=== PATIENT | male | born 1990 | race Caucasian/White ===

== ENCOUNTER 2018-07-02 13:38 | Emergency (ER) | payer OTHER ==
[2018-07-02 13:51] VITALS: BP 143/86; TEMP 97.5; O2SAT 100
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
== END 2018-07-02 14:32 | disposition home or self-care (01) ==
LOC: ER 13:38 → EDSTATUS 13:39 → ER 14:32
DX: S80.11XA Contusion of right lower leg, initial encounter (principal); V03.10XA Pedestrian on foot injured in collision with car, pick-up truck or van in traffic accident, initial encounter; Y92.410 Unspecified street and highway as the place of occurrence of the external cause

== ENCOUNTER 2019-04-26 16:19 | Emergency (ER) | payer OTHER ==
[2019-04-26] MEDS ORDERED: LIDOCAINE 1% W/ EPINEPHRINE 20 ML VIAL INJ ONE (16:29)
[2019-04-26] MEDS ORDERED: SULFA/TRIMETH 800/160 (DS) TAB 1 EA TAB PO ONE (16:38)
--- NOTE | 2019-04-26 16:41 | ED.PDOC ---
History of Present Illness - General Chief Complaint: Skin/Abrasion/Tear Time Seen by Provider: 04/26/19 16:38 Source: patient Exam Limitations: no limitations - History of Present Illness Initial Comments: the patient is a 29-year-old male presenting to the emergency room secondary to an area of irritation to his rightmid back. On examination this is an abraded skin tag. It does have mild surrounding erythema. It is not currently bleeding. Difficult to tell if the erythema is from irritation or from the start of infection. Timing/Duration: 24 hours Severity: mild Improving Factors: nothing Worsening Factors: nothing Associated Symptoms: denies symptoms Allergies/Adverse Reactions: Allergies NO KNOWN ALLERGY Allergy (Unverified 07/02/18 13:53) Home Medications: Ambulatory Orders Indomethacin 50 mg PO TID PRN #14 cap 07/02/18 Sulfa/Trimeth 800/160 (Ds) Tab [Bactrim DS Tab] 1 ea PO BID #6 tab 04/26/19 Review of Systems - Review of Systems Constitutional: States: no symptoms reported EENTM: States: no symptoms reported Respiratory: States: no symptoms reported Cardiology: States: no symptoms reported Gastrointestinal/Abdominal: States: no symptoms reported Genitourinary: States: no symptoms reported Musculoskeletal: States: no symptoms reported Skin: States: see HPI Neurological: States: no symptoms reported Endocrine: States: no symptoms reported All other Systems: No Change from Baseline Past Medical History (General) - Patient Medical History Hx Stroke: No Hx Asthma: No Hx of COPD: No Hx Congestive Heart Failure: No Hx Diabetes: No Hx Cancer: No Hx of HIV: No Hx Hepatitis C: No Hx MRSA: No - Vaccination History Hx Tetanus, Diphtheria Vaccination: No Hx Influenza Vaccination: No Hx Pneumococcal Vaccination: No - Social History Hx Tobacco Use: No Hx Alcohol Use: No Hx Substance Use: No Hx Substance Use Treatment: No Hx Depression: No - Female History Patient : No Family Medical History - Family History Mother Living Status: Still Living Hx Family;Other: Kidney DX Physical Exam - Physical Exam General Appearance: Alert, Comfortable, No apparent distress Ears, Nose, Throat: hearing grossly normal Neck: full range of motion Respiratory: no respiratory distress, no accessory muscle use Rectal Exam: deferred Back Exam: normal inspection - with the exception of the skin tag Extremity: normal range of motion, normal capillary refill 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 After risk and benefits were explained the patient did agree to have the skin tag removed. Xylocaine with epinephrine was used 1/2 cc for local anesthetic. The skin tag was excised with a scalpel. Chemical cautery was used for hemostasis. Dressing was applied. The patient Will be written for 3 days of Bactrim in case the surrounding erythema is infection starting in the area. ER warnings were given. shobha escobar [id number] Departure - Departure Clinical Impression: Skin tag Cellulitis Qualifiers: Site of cellulitis: trunk Site of cellulitis of trunk: back Qualified Code(s): L03.312 - Cellulitis of back [any part except buttock] Disposition: Discharge to Home or Self Care Condition: Fair Departure Forms: ED Discharge - Pt. Copy, Patient Portal Self Enrollment Instructions: DI for Abrasion, DI for Wound Infection Diet: regular diet Activity: increase activity as tolerated Prescriptions: Sulfa/Trimeth 800/160 (Ds) Tab [Bactrim DS Tab] 1 ea PO BID #6 tab Home Medications: Ambulatory Orders Indomethacin 50 mg PO TID PRN #14 cap 07/02/18 Sulfa/Trimeth 800/160 (Ds) Tab [Bactrim DS Tab] 1 ea PO BID #6 tab 04/26/19 Additional Instructions: the patient is a 29-year-old male presenting to emergency room secondary to erythema and irritation surrounding an abraded skin tag. Xylocaine with epinephrine was used 1/2 cc for local anesthetic. The skin tag was excised with a scalpel. The patient Will be written for 3 days of Bactrim in case the surrounding erythema is infection starting in the area. ER warnings were given.
[2019-04-26 16:52] VITALS: BP 136/82; TEMP 98.7; O2SAT 98
== END 2019-04-26 16:55 | disposition home or self-care (01) ==
LOC: ER 16:19
DX: L03.312 Cellulitis of back [any part except buttock and flank] (principal); L91.8 Other hypertrophic disorders of the skin

== ENCOUNTER 2019-05-10 12:51 | Emergency (ER) | payer OTHER ==
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
--- NOTE | 2019-05-10 14:26 | CT ---
EXAM DESCRIPTION: Cervical Spine CLINICAL HISTORY: trauma COMPARISON: None Available. TECHNIQUE: Cervical CT is performed with thin-section axial imaging. MPRs are created and reviewed as well. This exam was performed according to our departmental dose-optimization program, which includes automated exposure control, adjustment of the mA and/or kV according to patient size and/or use of iterative reconstruction technique. FINDINGS: The cervical spinal alignment is intact without significant listhesis. The vertebral body heights are relatively maintained. No displaced fracture or significantly appearing subluxation is seen. The craniocervical junction is intact. The atlantodental dental interval is intact. The prevertebral soft tissues are within normal limits. IMPRESSION: 1. No displaced cervical spine fracture or malalignment. Electronically signed by: Lucian Hinkle DO 05/10/2019 2:24 PM [facility]
--- NOTE | 2019-05-10 14:33 | RAD ---
: 1990. Technique: 3 views of the left hand. Clinical history: injury 5th digit. Findings: There is mild dorsal medial soft tissue swelling. No evidence for acute fracture. Normal articulations. No destructive lesion. Impression: 1. No acute skeletal findings. Electronically signed by: Salazar De La Torre MD 05/10/2019 2:32 PM [facility]
[2019-05-10] MEDS ORDERED: HYDROcodone 5MG/APAP 325MG 1 EA TAB PO ONE (15:04)
[2019-05-10] MEDS ORDERED: CYCLOBENZAPRINE HCL 10 MG TAB PO ONE (15:05)
[2019-05-10 15:27] VITALS: BP 134/88; TEMP 99; O2SAT 96
== END 2019-05-10 15:15 | disposition home or self-care (01) ==
LOC: ER 12:51
DX: S16.1XXA Strain of muscle, fascia and tendon at neck level, initial encounter (principal); S63.637A Sprain of interphalangeal joint of left little finger, initial encounter; V49.49XA Driver injured in collision with other motor vehicles in traffic accident, initial encounter; Y92.410 Unspecified street and highway as the place of occurrence of the external cause